=== PATIENT | female | born 1955 ===

== ENCOUNTER → 2020-11-22 | Outpatient (CLI) | payer MEDICARE ==
[2014-11-19 13:15] VITALS: BP 145/61
[~2020-11-22] MED LIST: AMIT25TA PO; ASPI-482 PO; METF500T16 PO; NAPR-514 PO; NAPR500T8 PO; OLME1TAB23 PO; OMEP20TA63 PO; OXYC1TAB15 PO; PIOG30TA41 PO; PRAV10TA2 PO; PSEU120T9 PO; SENN-37 PO
--- NOTE | 2020-11-22 17:19 | KCIC ---
EXAMINATION: XR CHEST 2V CLINICAL HISTORY: Pneumonia lower lobe, cough. EXAM DATE/TIME: 11/22/2020 3:33 PM COMPARISON: 11/12/2014 FINDINGS: Lines, Tubes, and Devices: None. Cardiomediastinal Silhouette: Normal heart size. Aortic atherosclerotic calcification. Lungs and Pleura: Mild patchy opacities in the right mid to lower lung zone. No pleural effusion. Pul monary vasculature within normal limits. Bones and Soft Tissues: Degenerative changes of the thoracic spine. Cervicothoracic fusion hardware. Cholecystectomy clips. IMPRESSION: Mild patchy opacities in the right mid to lower lung zone may represent residual pneumonia. Correlate with more recent comparison radiographs available. Electronically signed by: Marcus Dudley DO (11/22/2020 5:16 PM) [id number]
== END ==
LOC: KCIC 15:28
PROVIDERS: ATTEND Family Medicine
DX: R91.8 Other nonspecific abnormal finding of lung field (principal); J18.9 Pneumonia, unspecified organism; Z90.49 Acquired absence of other specified parts of digestive tract
CPT/HCPCS: 71046